=== PATIENT | male | born 1995 | race Caucasian/White ===

== ENCOUNTER 2021-03-09 10:05 | Emergency (ER) | payer BC, SELFPAY ==
[2021-03-09 11:14] VITALS: BP 114/71; PULSE 94; RESP 22; TEMP 37.6; O2SAT 99; BMI 24.3
--- NOTE | 2021-03-09 11:20 | HMH.EDUTC ---
[facility] [place] Disposition Clinical Impression: Exposure to COVID-19 virus Upper respiratory infection Qualifiers: URI type: unspecified URI Qualified Code(s): J06.9 - Acute upper respiratory infection, unspecified Disposition: Home, Self-Care Condition on Discharge: Good Instructions: DI for Sinusitis, DI for Cough -- Adult, DI for COVID-19 (Suspected or Confirmed ), Preventing the Spread of Coronavirus Discharge Instructions Additional Instructions: ? Start antibiotic today. Be sure to complete entire prescription even if feeling better ? Monitor temp. Tylenol every 4 hours as needed and / or ibuprofen every 6 hours as needed ( As long as your primary care physician has told you that it ok to take both. For fever/aches/pains ER if no less than 101 despite Tylenol or Motrin ? Humidifier/vaporizer or hot steamy shower ? Mucinex during the day for your cough and cough suppressant only at night. Be sure to drink lots of water. Insurance may not cover a prescriptions for mucinex. Might be cheaper to get them over the counter and make sure to take with lots of water. *Promethazine DM cough syrup will cause drowsiness. Use only at night. No driving, operating machinery or caring for small children after taking it *Start steroid today. Helps with inflammation therefore, cough and wheezing. Follow directions on the package. Reviewed side effects. Patient reports taking them before. Follow up IMMEDIATELY for new or worsening of symptoms OR no noticeable improvement over the next 48-72 hours. 911 immediately for any life threatening symptoms such as chest pain or difficulty breathing Prescriptions: Doxycycline Monohydrate [Doxycycline [place] 100mg Tab] 100 mg PO BID 7 Days #14 tab Transmission Status: Received by [id number] methylPREDNISolone [Medrol 4mg tab] 4 mg PO DIRECTED #21 tab Transmission Status: Received by [id number] Promethazine/Dextromethorphan [Promethazine-Dm Syrup] 5 ml PO Q6H PRN #100 ml PRN Reason: Cough Transmission Status: Received by [id number] Ondansetron [Zofran 4mg ODT] 4 mg PO TIDP PRN #20 tab PRN Reason: Nausea Transmission Status: Received by [id number] Referrals: Provider,Referral, MD [Primary Care Provider] - As needed Forms: Work/School Release Medical Decision Making - [place] Inquiry Pt receiving controlled substance: No [place] was queried for this patient: No Vital Signs: 03/09/21 11:14 03/09/21 12:07 Temperature 99.6 F 99.6 F Temperature Source Oral Pulse Rate 94 H Pulse Rate [Right Brachial] 94 H Respiratory Rate 22 22 Blood Pressure 114/71 Blood Pressure [Right Arm] 114/71 Blood Pressure Mean [Right Arm] 85 Blood Pressure Source [Right Arm] Automatic Cuff Blood Pressure Position [Right Arm] Sitting 02 Sat by Pulse Oximetry 99 Orders (Tests/Meds): ED MEDICATIONS Discontinued Medications Generic Name Dose Route Start Last Admin Trade Name Freq PRN Reason Stop Dose Admin Sodium Chloride 1,000 mls @ 999 mls/hr 03/09/21 12:00 03/09/21 11:00 Sod Chlor 0.9% 1000ml Bag IV 03/09/21 13:00 999 mls/hr .Q1H1M ENRIQUE Administration Ondansetron HCl 4 mg 03/09/21 11:52 03/09/21 11:00 Ondansetron 4mg/2ml Vial IV 03/09/21 11:53 4 mg ONCE ONE Administration ORDERS Category Date Time Status Covid-19 Nasal PCR ([facility]) Routine Lab 03/09/21 10:58 Received [facility] [place] HPI - General Stated complaint: covid test Time Seen by Provider: 03/09/21 11:20 Mode of Arrival: Ambulatory Description of Symptoms (Recalled from Triage Doc. by RN): PT STATES THAT HE WAS EXPOSED TO BROTHER WITH COVID LAST WEEK AND STARTED WITH SYMPTOMS 3 DAYS AGO. STATES HE HAS BEEN VOMITING, COUGH, CHEST CONGESTION, AND BODY ACHES. HEENT Symptoms (Recalled from RN notes): Yes Resp Symptoms (Recalled from RN notes): Yes Skin Symptoms (Recalled from RN notes): No MS Symptoms (Recalled from RN notes): No Functional Status (Recalled from RN not
[2021-03-09 12:07] VITALS: BP 114/71; PULSE 94; RESP 22; TEMP 37.6; O2SAT 99
== END 2021-03-09 12:12 | disposition home or self-care (01) ==
PROVIDERS: Emergency Provider Nurse Practitioner
DX: R11.10 Vomiting, unspecified (principal); R05 Cough; R52 Pain, unspecified; Z20.822 Contact with and (suspected) exposure to COVID-19
CPT/HCPCS: 96365; 96376; 99202; G0463; J2405; U0003